=== PATIENT | male | born 1990 | race Caucasian/White ===

== ENCOUNTER 2016-10-21 04:50 | Emergency (ER) | payer MEDICAID ==
[~2016-10-21] VITALS: Ht 177.8 cm; Wt 75.0 kg
[2016-10-21] MEDS ORDERED: SODIUM CHLORIDE 0.9% 1,000 ML IV ONE (06:18)
[2016-10-21] MEDS ORDERED: KETOROLAC 30MG/ML VIAL IV STA (06:18)
[2016-10-21] MEDS ORDERED: ONDANSETRON HCL 4MG/2ML VIAL IV STA (06:18)
[2016-10-21 06:37] LABS: HEMATOCRIT. 38.2 % (42.0-52.0); HEMOGLOBIN. 12.9 g/dL (14.0-18.0); MEAN CORPUSCULAR HEMOGLOBIN 30.4 pg (28.0-32.0); MEAN CORPUSCULAR HGB CONC 33.7 g/dL (31.0-37.0); MEAN CORPUSCULAR VOLUME 90.1 fL (80.0-94.0); MEAN PLATELET VOLUME 7.5 fl (7.4-10.4); PLATELET 221 x1000/uL (130-400); RED BLOOD CELL COUNT 4.24 mill/uL (4.7-6.1); RED CELL DISTRIBUTION WIDTH 14.1 % (11.6-14.6); WHITE BLOOD COUNT 12.3 x1000/uL (4.5-11.0)
[2016-10-21 06:38] LABS: DIFFERENTIAL COMMENT 1
[2016-10-21 06:42] LABS: INR 1.2; PROTHROMBIN TIME 12.5 sec
[2016-10-21 06:52] LABS: ALANINE AMINOTRANSFERASE 391 IU/L (13-61); ALBUMIN 3.1 g/dL (3.4-5.0); ANION GAP 12; CALCIUM 8.6 mg/dL (8.5-10.1); CARBON DIOXIDE 27 mEq/L (21-32); CHLORIDE 107 mEq/L (98-107); ETHANOL BLOOD < 10 mg/dL; INDEX HEMOLYSI 1 (1-3); INDEX ICTERIC 1 (1-4); INDEX LIPEMIC 1 (1-3); NT PRO B-TYPE NATRIURETIC PEP 90 pg/mL (5-125); TROPONIN I < 0.02 ng/mL (0.00-0.04); UREA NITROGEN BLOOD 13 mg/dL (7-21); eGFR > 60 mL/min (>60)
[2016-10-21 08:13] LABS: HEPATITIS B SURFACE ANTIGEN NEGATIVE
[2016-10-21 08:41] LABS: HEPATITIS C VIR.AB 0.04 INDEXVAL (0.00-0.80)
[2016-10-21 08:42] LABS: HEPATITIS B CORE AB IGM NEGATIVE
[2016-10-21 08:43] LABS: HEPATITIS A AB IGM NEGATIVE (NEGATIVE)
[2016-10-21 08:59] LABS: CLARITY URINE CLEAR (CLEAR); COLOR URINE DARK YELLOW (YELLOW); GLUCOSE URINE NEGATIVE (NEGATIVE); KETONES URINE NEGATIVE (NEGATIVE); LEUKOCYTE ESTERASE URINE NEGATIVE (NEGATIVE); NITRITE URINE NEGATIVE (NEGATIVE); OCCULT BLOOD URINE NEGATIVE (NEGATIVE); PH URINE 5.5 (4.5-8.0); PROTEIN URINE NEGATIVE (NEGATIVE); SPECIFIC GRAVITY URINE 1.014 (1.005-1.030); UROBILINOGEN URINE 0.2 E.U./dL (0.2-1.0)
[2016-10-21 09:12] LABS: PLATELET ESTIMATE NORMAL
[2016-10-21 09:20] LABS: *AMPHETAMINES SCREEN URINE NEGATIVE (NEGATIVE); *BARBITURATES SCREEN URINE NEGATIVE (NEGATIVE); *BENZODIAZEPINES SCREEN URINE NEGATIVE (NEGATIVE); *COCAINE SCREEN URINE PRESUMTIVE POSITIVE (NEGATIVE); CANNABINOID URINE SCREEN NEGATIVE (NEGATIVE); ECSTASY MDMA SCREEN URINE NEGATIVE (NEGATIVE); METHADONE URINE SCREEN NEGATIVE (NEGATIVE); OPIATES URINE SCREEN PRESUMTIVE POSITIVE (NEGATIVE); PHENCYCLIDINE URINE SCREEN NEGATIVE (NEGATIVE)
[2016-10-21 11:12] VITALS: BP 101/77
== END 2016-10-21 11:14 | disposition home or self-care (01) ==
LOC: ER 04:51
DX: R11.2 Nausea with vomiting, unspecified (principal); E87.6 Hypokalemia; M54.5 Low back pain; R56.9 Unspecified convulsions; F17.200 Nicotine dependence, unspecified, uncomplicated; F14.10 Cocaine abuse, uncomplicated
CPT/HCPCS: 36415; 70450; 71010; 72100; 76700; 80053; 80305; 80329; 81003; 83880; 84484; 85025; 85610; 93005; 96361; 96374; 96375; 99285; G0482; J1885; J2405; J7030; Z7610; 80307; 86705; 86709; 86803; 87340